=== PATIENT | female | born 1960 | race Caucasian/White ===

== ENCOUNTER 2018-02-06 05:28 | Inpatient (IN) | payer MEDICAID ==
[~2018-02-06] VITALS: Ht 170.2 cm; Wt 70.3 kg
[2018-02-06] VITALS (38 sets, daily range): BP systolic 92–139; BP diastolic 22–79
[2018-02-06] MEDS ORDERED: LACTATED RINGERS 1,000 ML IV SCH (06:00)
[2018-02-06] MEDS ORDERED: LIDOCAINE HCL/EPINEPHRINE 1%-EPI 1:100,000 20 ML VIAL ONE (06:11)
[2018-02-06] MEDS ORDERED: BACITRACIN 50,000 UNITS/VIAL ONE (06:11)
[2018-02-06] MEDS ORDERED: THROMBIN (BOVINE) 5000 UNITS/VIAL TOP ONE (06:11)
[2018-02-06] MEDS ORDERED: GELATIN SPONGE,COMPRESSED SZ 100 ONE (06:11)
[2018-02-06] MEDS ORDERED: NEOSTIGMINE METHYLSULFATE 1MG/ML 10 ML VIAL ONE (06:57)
[2018-02-06] MEDS ORDERED: MIDAZOLAM HCL 2 MG/2 ML VIAL ONE (06:57)
[2018-02-06] MEDS ORDERED: GLYCOPYRROLATE 0.2 MG/ML 2ML VIAL ONE ×2 (06:57→08:16)
[2018-02-06] MEDS ORDERED: ROCURONIUM BROMIDE 10MG/ML VIAL 5ML IV ONE (06:57)
[2018-02-06] MEDS ORDERED: FENTANYL CITRATE/PF 50MCG/ML 2ML VIAL ONE (06:57)
[2018-02-06] MEDS ORDERED: PROPOFOL 200MG/20ML VIAL IV ONE (06:57)
[2018-02-06] MEDS ORDERED: ONDANSETRON HCL 4MG/2ML INJ ONE (07:01)
[2018-02-06] MEDS ORDERED: DEXAMETHASONE 4MG/ML 1ML VIAL ONE (07:01)
[2018-02-06] MEDS ORDERED: LABETALOL 5MG/ML SYR 20 MG/4 ML SYRINGE IV PRN (07:30)
[2018-02-06] MEDS ORDERED: HYDROMORPHONE HCL/PF 2MG/ML CPJ IV PRN (07:30)
[2018-02-06] MEDS ORDERED: MEPERIDINE HCL/PF 25MG/ML CPJ IV PRN (07:30)
[2018-02-06] MEDS ORDERED: ONDANSETRON HCL 4MG/2ML INJ IV PRN ×3 (07:30→17:30)
[2018-02-06] MEDS ORDERED: HYDROCODONE/ACETAMINOPHEN 10/325MG TABLET PO PRN (08:15)
[2018-02-06] MEDS ORDERED: ACETAMINOPHEN 325MG TABLET PO PRN ×2 (08:15→17:30)
[2018-02-06] MEDS ORDERED: ALPR0.5T PO (08:54)
[2018-02-06] MEDS ORDERED: ASCO-339 PO (08:54)
[2018-02-06] MEDS ORDERED: AMLO5TAB88 PO (08:54)
[2018-02-06] MEDS ORDERED: SERT-112 PO (08:54)
[2018-02-06] MEDS ORDERED: LOVA20TA2 PO (08:54)
[2018-02-06] MEDS ORDERED: HYDR-4001 PO (08:54)
[2018-02-06] MEDS ORDERED: HYDROMORPHONE HCL/PF 2MG/ML CPJ ONE (09:23)
[2018-02-06] MEDS ORDERED: NICARDIPINE 100 MG in SODIUM CHLORIDE 0.9% 60 ML IV PRN ×4 (09:30)
[2018-02-06] MEDS: DEXT 5%/LACTATED RINGERS 1,000 ML IV SCH ×2 (09:37→18:05)
[2018-02-06] MEDS ORDERED: MORPHINE SULFATE 4 MG/ML CPJ (NOT FOR IM USE) IV PRN ×2 (10:00)
[2018-02-06] MEDS ORDERED: NALOXONE INJ IV PRN (10:45)
[2018-02-06] MEDS ORDERED: HYDROMORPHONE PCA 10MG/50ML IV PRN (10:45)
[2018-02-06] MEDS ORDERED: ONDANSETRON INJ IV PRN (10:45)
[2018-02-06] MEDS ORDERED: DIPHENHYDRAMINE INJ IV PRN (10:45)
[2018-02-06] MEDS: DEXAMETHASONE 4MG/ML 1ML VIAL IV SCH ×2 (12:34→18:00)
[2018-02-06] MEDS: CEFAZOLIN 1000MG PREMIX 50 ML IV SCH ×2 (14:00→22:46)
[2018-02-06] MEDS ORDERED: CEFAZOLIN SODIUM 1000MG/VIAL IV SCH (14:00)
[2018-02-06] MEDS ORDERED: THIAMINE HCL 100MG TABLET PO SCH (14:00)
[2018-02-06] MEDS ORDERED: OMEPRAZOLE 20MG CAPSULE EXTENDED RELEASE PO SCH (14:00)
[2018-02-06] MEDS ORDERED: IPRATROPIUM/ALBUTEROL 0.5-3(2.5)MG/3ML NEB ONE (14:49)
[2018-02-06] MEDS: IPRATROPIUM/ALBUTEROL 0.5-3(2.5)MG/3ML NEB HHN SCH ×2 (14:52→20:08)
[2018-02-06] MEDS ORDERED: ACETAMINOPHEN 650MG/20.3ML UDC GT PRN (17:30)
[2018-02-06] MEDS ORDERED: ACETAMINOPHEN 650MG SUPP PR PRN (17:30)
[2018-02-06] MEDS: AMLODIPINE 5MG TABLET PO SCH (18:00)
[2018-02-06] MEDS: SERTRALINE HCL 100MG TABLET PO SCH (18:05)
[2018-02-06] MEDS ORDERED: ATORVASTATIN CALCIUM 20MG TABLET PO SCH (21:00)
[2018-02-06] MEDS: LORAZEPAM 2MG/ML CPJ IV PRN (21:09)
[2018-02-06] MEDS: ASCORBIC ACID 500 MG TABLET PO SCH (21:10)
[2018-02-06] MEDS: FLUTICASONE PROPIONATE 50MCG/SPRAY BOTTLE BOTHNSTRLS SCH (21:10)
[2018-02-06 22:55] LABS: CLARITY URINE CLEAR (CLEAR); COLOR URINE YELLOW (YELLOW); KETONES URINE NEGATIVE (NEGATIVE); LEUKOCYTE ESTERASE URINE NEGATIVE (NEGATIVE); NITRITE URINE NEGATIVE (NEGATIVE); OCCULT BLOOD URINE TRACE (NEGATIVE); PH URINE 5.5 (4.5-8.0); PROTEIN URINE NEGATIVE (NEGATIVE); SPECIFIC GRAVITY URINE 1.005 (1.005-1.030); UROBILINOGEN URINE 0.2 E.U./dL (0.2-1.0)
[2018-02-06 23:18] LABS: *AMPHETAMINES SCREEN URINE NEGATIVE (NEGATIVE); *BARBITURATES SCREEN URINE NEGATIVE (NEGATIVE)
[2018-02-06 23:19] LABS: *BENZODIAZEPINES SCREEN URINE PRESUMTIVE POSITIVE (NEGATIVE); *COCAINE SCREEN URINE NEGATIVE (NEGATIVE); METHADONE URINE SCREEN NEGATIVE (NEGATIVE); OPIATES URINE SCREEN PRESUMTIVE POSITIVE (NEGATIVE)
[2018-02-06 23:20] LABS: CANNABINOID URINE SCREEN NEGATIVE (NEGATIVE); PHENCYCLIDINE URINE SCREEN NEGATIVE (NEGATIVE)
[2018-02-07] VITALS (13 sets, daily range): BP systolic 127–142; BP diastolic 47–81
[2018-02-07] MEDS: DEXAMETHASONE 4MG/ML 1ML VIAL IV SCH ×3 (00:30→12:04)
[2018-02-07] MEDS: IPRATROPIUM/ALBUTEROL 0.5-3(2.5)MG/3ML NEB HHN SCH (01:57)
[2018-02-07 02:10] LABS: CREATINE KINASE 259 IU/L (26-192)
[2018-02-07 02:11] LABS: CREATINE KINASE MB FRACTION 8.4 ng/mL (0.5-3.6)
[2018-02-07] MEDS: LORAZEPAM 2MG/ML CPJ IV PRN (03:40)
[2018-02-07 06:02] LABS: CHLORIDE 103 mEq/L (98-107)
[2018-02-07 06:04] LABS: HEMATOCRIT. 32.5 % (36.0-48.0); MEAN CORPUSCULAR HEMOGLOBIN 33.5 pg (28.0-32.0); MEAN CORPUSCULAR VOLUME 98.6 fL (81.0-99.0); MEAN PLATELET VOLUME 7.8 fl (7.4-10.4); PLATELET 235 x1000/uL (130-400); RED CELL DISTRIBUTION WIDTH 14.7 % (11.6-14.6)
[2018-02-07 06:11] LABS: LDL CHOLESTEROL 130 mg/dL (5-100)
[2018-02-07 06:12] LABS: HDL CHOLESTEROL 123 mg/dL (40-59)
[2018-02-07] MEDS: DEXT 5%/LACTATED RINGERS 1,000 ML IV SCH (06:12)
[2018-02-07 06:13] LABS: CREATINE KINASE MB FRACTION 7.2 ng/mL (0.5-3.6)
[2018-02-07] MEDS: CEFAZOLIN 1000MG PREMIX 50 ML IV SCH (06:13)
[2018-02-07 06:14] LABS: CREATINE KINASE 268 IU/L (26-192)
[2018-02-07 06:15] LABS: T4 FREE 1.22 ng/dL (0.76-1.46)
[2018-02-07] MEDS ORDERED: OMEPRAZOLE 20MG CAPSULE EXTENDED RELEASE PO SCH (06:30)
[2018-02-07] MEDS ORDERED: THIAMINE HCL 100MG TABLET PO SCH (09:00)
[2018-02-07] MEDS ORDERED: FOLIC ACID 1MG TABLET PO SCH (09:00)
[2018-02-07] MEDS: ASCORBIC ACID 500 MG TABLET PO SCH (09:25)
[2018-02-07] MEDS: FLUTICASONE PROPIONATE 50MCG/SPRAY BOTTLE BOTHNSTRLS SCH (09:25)
[2018-02-07] MEDS: SERTRALINE HCL 100MG TABLET PO SCH (09:25)
[2018-02-07] MEDS: AMLODIPINE 5MG TABLET PO SCH (09:25)
[2018-02-07 10:22] LABS: PLATELET ESTIMATE NORMAL
== END 2018-02-07 12:56 | disposition home or self-care (01) | DRG 321 ==
LOC: ORIP 05:28 → MICUNO 08:52
PROVIDERS: ADMIT Internal Medicine; ATTEND Internal Medicine
PROC: 4A11X4G Monitoring of Peripheral Nervous Electrical Activity, Intraoperative, External Approach (ICD-10-PCS; 2018-02-06)
PROC: 0RB30ZZ Excision of Cervical Vertebral Disc, Open Approach (ICD-10-PCS; 2018-02-06)
PROC: 0RG20K0 Fusion of 2 or more Cervical Vertebral Joints with Nonautologous Tissue Substitute, Anterior Approach, Anterior Column, Open Approach (ICD-10-PCS; principal; 2018-02-06 07:00)
DX: M47.12 Other spondylosis with myelopathy, cervical region (principal); G82.50 Quadriplegia, unspecified; M47.22 Other spondylosis with radiculopathy, cervical region; M48.02 Spinal stenosis, cervical region; E78.5 Hyperlipidemia, unspecified; F10.10 Alcohol abuse, uncomplicated; G95.20 Unspecified cord compression; I10 Essential (primary) hypertension; F32.9 Major depressive disorder, single episode, unspecified; Z87.891 Personal history of nicotine dependence
CPT/HCPCS: 36415; 71045; 72040; 80061; 80305; 82550; 82553; 84439; 84443; 84481; 84484; 86850; 86900; 88304; 88311; 92610; 93970; 94640; 95925; 95926; 95928; 95929; 97162; 97166; A6261; C1713; J0690; J1100; J1170; J1200; J2060; J2250; J2405; J2704; J2710; J3010; J3490; J7120; J7620

== ENCOUNTER 2019-05-06 05:24 | Inpatient (IN) | payer MEDICAID ==
[2019-05-06] VITALS (58 sets, daily range): BP systolic 46–289; BP diastolic 16–286
[~2019-05-06] VITALS: Ht 170.2 cm; Wt 83.9 kg
[~2019-05-06 05:24] MED LIST: ALPR0.5T PO; AMLO5TAB88 PO; ASCO-339 PO; HYDR-4001 PO; LOVA20TA2 PO; SERT-112 PO
[2019-05-06] MEDS ORDERED: LACTATED RINGERS 1,000 ML IV SCH (06:15)
[2019-05-06] MEDS ORDERED: LIDOCAINE HCL/EPINEPHRINE 1%-EPI 1:100,000 20 ML VIAL ONE (06:29)
[2019-05-06] MEDS ORDERED: THROMBIN (BOVINE) 5000 UNITS/VIAL TOP ONE (06:29)
[2019-05-06] MEDS ORDERED: BACITRACIN 15GM TUBE TOP ONE (06:29)
[2019-05-06] MEDS ORDERED: BACITRACIN 50,000 UNITS/VIAL ONE (06:30)
[2019-05-06] MEDS ORDERED: ONDANSETRON HCL 4MG/2ML INJ IV PRN ×2 (07:15→08:45)
[2019-05-06] MEDS ORDERED: NICARDIPINE 100 MG in SODIUM CHLORIDE 0.9% 60 ML IV PRN ×2 (07:15→11:30)
[2019-05-06] MEDS ORDERED: MORPHINE SULFATE 4 MG/ML CPJ (NOT FOR IM USE) IV PRN (07:15)
[2019-05-06] MEDS ORDERED: HYDROMORPHONE HCL/PF 2MG/ML CPJ IV PRN (08:45)
[2019-05-06] MEDS ORDERED: MEPERIDINE HCL/PF 25MG/ML CPJ IV PRN (08:45)
[2019-05-06] MEDS ORDERED: LABETALOL 5MG/ML SYR 20 MG/4 ML SYRINGE IV PRN (08:45)
[2019-05-06] MEDS ORDERED: ACET-2708 PO (09:18)
[2019-05-06] MEDS ORDERED: ASPI-1153 PO (09:18)
[2019-05-06] MEDS ORDERED: ONDANSETRON INJ IV PRN (11:45)
[2019-05-06] MEDS ORDERED: NALOXONE INJ IV PRN (11:45)
[2019-05-06] MEDS ORDERED: DIPHENHYDRAMINE INJ IV PRN (11:45)
[2019-05-06] MEDS: HYDROMORPHONE PCA 10MG/50ML IV PRN (11:46)
[2019-05-06] MEDS ORDERED: DEXT 5%/LACTATED RINGERS 1,000 ML IV SCH (12:00)
[2019-05-06] MEDS ORDERED: SODIUM CHLORIDE 0.9% 500 ML IV ONE (13:30)
[2019-05-06] MEDS ORDERED: SODIUM CHLORIDE 0.9% 500 ML IV SCH (13:45)
[2019-05-06] MEDS ORDERED: CEFAZOLIN SODIUM 1000MG/VIAL IV SCH (14:00)
[2019-05-06] MEDS: DEXT 5%/LACTATED RINGERS 1,000 ML IV SCH ×2 (14:10→21:30)
[2019-05-06] MEDS: CEFAZOLIN 1000MG PREMIX 50 ML IV SCH ×2 (14:10→21:04)
[2019-05-06] MEDS ORDERED: IPRATROPIUM/ALBUTEROL 0.5-3(2.5)MG/3ML NEB HHN PRN (17:15)
[2019-05-06] MEDS ORDERED: BISACODYL 5MG TABLET PO PRN (17:15)
[2019-05-06] MEDS ORDERED: ALPRAZOLAM 0.5 MG TABLET PO SCH (17:30)
[2019-05-06] MEDS ORDERED: ALPRAZOLAM 0.5 MG TABLET PO PRN (17:45)
[2019-05-06] MEDS: SERTRALINE HCL 100MG TABLET PO SCH (18:07)
[2019-05-06] MEDS: CHLORDIAZEPOXIDE 25MG CAPSULE PO SCH (21:04)
[2019-05-06] MEDS: ATORVASTATIN CALCIUM 20MG TABLET PO SCH (21:04)
[2019-05-07] VITALS (24 sets, daily range): BP systolic 79–157; BP diastolic 41–131
[2019-05-07] MEDS: DEXT 5%/LACTATED RINGERS 1,000 ML IV SCH ×2 (04:30→10:00)
[2019-05-07] MEDS: CHLORDIAZEPOXIDE 25MG CAPSULE PO SCH ×3 (05:46→21:30)
[2019-05-07] MEDS: CEFAZOLIN 1000MG PREMIX 50 ML IV SCH (05:47)
[2019-05-07 06:11] LABS: BASOPHILS % 0.3 % (0.0-2.0); EOSINOPHILS % 0.1 % (0.0-5.0); HEMATOCRIT. 24.3 % (36.0-48.0); HEMOGLOBIN. 8.2 g/dL (12.0-16.0); LYMPHOCYTES % 10.4 % (20.0-50.0); MEAN CORPUSCULAR HEMOGLOBIN 35.5 pg (28.0-32.0); MEAN CORPUSCULAR VOLUME 104.8 fL (81.0-99.0); MEAN PLATELET VOLUME 7.8 fl (7.4-10.4); MONOCYTES % 9.2 % (2.0-8.0); PLATELET 174 x1000/uL (130-400); RED BLOOD CELL COUNT 2.32 mill/uL (4.2-5.4); RED CELL DISTRIBUTION WIDTH 16.7 % (11.6-14.6)
[2019-05-07 06:28] LABS: CHLORIDE 112 mEq/L (98-107)
[2019-05-07 06:38] LABS: PHOSPHORUS 2.1 mg/dL (2.5-4.9)
[2019-05-07 06:39] LABS: LDL CHOLESTEROL 76 mg/dL (5-100)
[2019-05-07 06:42] LABS: HDL CHOLESTEROL 111 mg/dL (40-59)
[2019-05-07] MEDS ORDERED: MAGNESIUM 4 G PREMIX 100 ML IV SCH (09:00)
[2019-05-07] MEDS: DOCUSATE SODIUM 100MG CAPSULE PO SCH ×2 (09:16→17:24)
[2019-05-07] MEDS: SERTRALINE HCL 100MG TABLET PO SCH (09:17)
[2019-05-07] MEDS: OXYCODONE HCL/ACETAMINOPHEN 5/325MG TABLET PO PRN ×2 (09:17→13:41)
[2019-05-07] MEDS: POLYETHYLENE GLYCOL 3350 (17GM) 1 DOSE PACK PO SCH (17:25)
[2019-05-07] MEDS: ATORVASTATIN CALCIUM 20MG TABLET PO SCH (20:13)
[2019-05-08] VITALS: BP 101/58
[2019-05-08 04:00] VITALS: BP 129/54
[2019-05-08] MEDS: CHLORDIAZEPOXIDE 25MG CAPSULE PO SCH ×3 (05:58→22:00)
[2019-05-08 06:55] LABS: BASOPHILS % 0.6 % (0.0-2.0); HEMATOCRIT. 23.5 % (36.0-48.0); HEMOGLOBIN. 8.2 g/dL (12.0-16.0); LYMPHOCYTES % 18.2 % (20.0-50.0); MEAN CORPUSCULAR HEMOGLOBIN 36.5 pg (28.0-32.0); MEAN CORPUSCULAR VOLUME 103.9 fL (81.0-99.0); MEAN PLATELET VOLUME 7.9 fl (7.4-10.4); MONOCYTES % 11.4 % (2.0-8.0); NEUTROPHILS % 68.8 % (40.0-76.0); PLATELET 166 x1000/uL (130-400); RED BLOOD CELL COUNT 2.26 mill/uL (4.2-5.4); RED CELL DISTRIBUTION WIDTH 16.3 % (11.6-14.6)
[2019-05-08 07:43] LABS: CHLORIDE 105 mEq/L (98-107)
[2019-05-08 07:44] LABS: FOLIC ACID (FOLATE) SERUM 11.6 ng/mL (>5.38)
[2019-05-08 07:51] LABS: TOTAL IRON BINDING CAPACITY 240 ug/dL (250-450)
[2019-05-08 08:00] VITALS: BP 111/49
[2019-05-08] MEDS: POLYETHYLENE GLYCOL 3350 (17GM) 1 DOSE PACK PO SCH (08:57)
[2019-05-08] MEDS: DOCUSATE SODIUM 100MG CAPSULE PO SCH ×2 (08:57→16:33)
[2019-05-08] MEDS: SERTRALINE HCL 100MG TABLET PO SCH (08:57)
[2019-05-08 12:00] VITALS: BP 121/62
[2019-05-08] MEDS: DEXT 5%/LACTATED RINGERS 1,000 ML IV SCH ×2 (13:25→19:20)
[2019-05-08] MEDS ORDERED: BISACODYL 5MG TABLET PO NR (15:30)
[2019-05-08 20:00] VITALS: BP 164/87
[2019-05-08] MEDS: HYDROMORPHONE PCA 10MG/50ML IV PRN (20:05)
[2019-05-08] MEDS: ATORVASTATIN CALCIUM 20MG TABLET PO SCH (20:16)
[2019-05-08] MEDS: OXYCODONE HCL/ACETAMINOPHEN 5/325MG TABLET PO PRN (20:16)
[2019-05-09] VITALS: BP 135/84
[2019-05-09] MEDS: DEXT 5%/LACTATED RINGERS 1,000 ML IV SCH ×2 (00:35→08:40)
[2019-05-09 04:00] VITALS: BP_SYST 137; BP_DIAS 64; BP_DIAS 84
[2019-05-09] MEDS: OXYCODONE HCL/ACETAMINOPHEN 5/325MG TABLET PO PRN ×2 (05:58→12:10)
[2019-05-09] MEDS: CHLORDIAZEPOXIDE 25MG CAPSULE PO SCH ×2 (05:58→13:42)
[2019-05-09 07:01] LABS: BASOPHILS % 0.6 % (0.0-2.0); EOSINOPHILS % 2.1 % (0.0-5.0); HEMATOCRIT. 23.8 % (36.0-48.0); HEMOGLOBIN. 8.2 g/dL (12.0-16.0); LYMPHOCYTES % 19.6 % (20.0-50.0); MEAN CORPUSCULAR HEMOGLOBIN 35.6 pg (28.0-32.0); MEAN CORPUSCULAR VOLUME 103.3 fL (81.0-99.0); MEAN PLATELET VOLUME 7.5 fl (7.4-10.4); MONOCYTES % 11.3 % (2.0-8.0); NEUTROPHILS % 66.4 % (40.0-76.0); PLATELET 180 x1000/uL (130-400)
[2019-05-09 07:06] LABS: CHLORIDE 106 mEq/L (98-107)
[2019-05-09 08:00] VITALS: BP 115/49
[2019-05-09] MEDS: POLYETHYLENE GLYCOL 3350 (17GM) 1 DOSE PACK PO SCH (08:58)
[2019-05-09] MEDS: DOCUSATE SODIUM 100MG CAPSULE PO SCH (08:58)
[2019-05-09] MEDS: SERTRALINE HCL 100MG TABLET PO SCH (08:59)
[2019-05-09 12:00] VITALS: BP 102/48
[2019-05-09 16:00] VITALS: BP 123/49
[2019-05-09 16:43] VITALS: BP 123/49
== END 2019-05-09 17:09 | disposition home or self-care (01) | DRG 304 ==
LOC: OR 05:24 → MICUSO 05:25 → 6EST 05-07 11:21
PROVIDERS: ADMIT Neurological Surgery; ATTEND Neurological Surgery
PROC: 0SG1071 Fusion of 2 or more Lumbar Vertebral Joints with Autologous Tissue Substitute, Posterior Approach, Posterior Column, Open Approach (ICD-10-PCS; principal; 2019-05-06)
PROC: 01NB0ZZ Release Lumbar Nerve, Open Approach (ICD-10-PCS; 2019-05-06)
PROC: 4A11X4G Monitoring of Peripheral Nervous Electrical Activity, Intraoperative, External Approach (ICD-10-PCS; 2019-05-06)
DX: M43.16 Spondylolisthesis, lumbar region (principal); M47.12 Other spondylosis with myelopathy, cervical region; M47.16 Other spondylosis with myelopathy, lumbar region; M48.061 Spinal stenosis, lumbar region without neurogenic claudication; M47.26 Other spondylosis with radiculopathy, lumbar region; E78.5 Hyperlipidemia, unspecified; F10.10 Alcohol abuse, uncomplicated; F32.9 Major depressive disorder, single episode, unspecified; I10 Essential (primary) hypertension; K59.00 Constipation, unspecified; G89.4 Chronic pain syndrome; D64.9 Anemia, unspecified; Z91.018 Allergy to other foods; Z88.8 Allergy status to other drugs, medicaments and biological substances
CPT/HCPCS: 36415; 72100; 76000; 80048; 80053; 80061; 82607; 82728; 82746; 83036; 83540; 83550; 83735; 84100; 85025; 86850; 86900; 95863; 95925; 95926; 95928; 95929; 97116; 97162; 97166; 97530; 97535; C1713; J0690; J1170; J1200; J3475; J3490; J7040; J7121